=== PATIENT | female | born 1935 | race Caucasian/White ===

== ENCOUNTER 2019-01-04 14:26 | Observation (INO) | payer OTHER, MEDICARE ==
[~2019-01-04] VITALS: Ht 162.6 cm; Wt 117.4 kg
[2019-01-04 15:31] LABS: BASOPHILS % (AUTO) 0.6 % (0.0-5.0); EOSINOPHILS % (AUTO) 2.2 % (0.0-8.0); HEMATOCRIT 32.1 % (36-48); LYMPHOCYTES % (AUTO) 21.2 % (21.0-51.0); MEAN CORPUSCULAR HEMOGLOBIN 31.1 pg (27.0-33.0); MEAN CORPUSCULAR HGB CONC 33.2 g/dL (32.0-36.0); MEAN CORPUSCULAR VOLUME 93.8 fL (79-99); MONOCYTES % (AUTO) 8.2 % (3.0-13.0); NEUTROPHILS % (AUTO) 67.8 % (40.0-77.0); PLATELET COUNT (AUTO) 227 K/uL (130-400); RED BLOOD CELL COUNT(AUTO) 3.42 MIL/uL (4.00-5.50); RED CELL DISTRIBUTION WIDTH 13.8 % (11.0-15.5); WHITE BLOOD COUNT (AUTO) 6.2 K/uL (4.8-10.8)
[2019-01-04 15:41] LABS: CREATININE 1.4 mg/dL (0.5-1.5); INR 0.97 (0.85-1.15); PARTIAL THROMBOPLASTIN TIME 31.2 SEC (26.3-35.5); POTASSIUM 4.2 mmol/L (3.5-5.1); PROTHROMBIN TIME 10.2 SEC (9.6-11.6)
[2019-01-04 15:46] LABS: ALBUMIN 3.3 g/dL (3.5-5.0); BILIRUBIN,TOTAL 0.4 mg/dL (0.2-1.0); TOTAL PROTEIN, SERUM 6.7 g/dL (6.0-8.3)
[2019-01-04] MEDS ORDERED: TRAMADOL HCL 50 MG TABLET ONE (16:29)
[2019-01-04] MEDS ORDERED: SODIUM CHLORIDE 0.9% 1000ML 1,000 ML IV ONE (16:31)
[2019-01-04] MEDS ORDERED: KETOROLAC TROMETHAMINE 15MG/ML ONE (18:05)
[2019-01-04] MEDS ORDERED: IPRATROPIUM/ALBUTEROL SULFATE 3 ML SOLUTION IH ONE ×2 (21:09→22:17)
[2019-01-04] MEDS ORDERED: ENOXAPARIN SODIUM 30 MG/0.3 ML SQ ONE (23:47)
[2019-01-04] MEDS ORDERED: VANCOMYCIN 1GM+NS 250ML 250 ML IV ONE (23:48)
[2019-01-05 02:30] VITALS: BP 131/54
[2019-01-05] MEDS ORDERED: IPRATROPIUM/ALBUTEROL SULFATE 3 ML SOLUTION IH ONE ×2 (02:54→05:07)
[2019-01-05] MEDS ORDERED: GABA-529 PO (03:14)
[2019-01-05] MEDS ORDERED: TAMS-1 PO (03:14)
[2019-01-05] MEDS ORDERED: LUTE40CA PO (03:14)
[2019-01-05] MEDS ORDERED: HYDR-4060 PO (03:14)
[2019-01-05] MEDS ORDERED: LEVO25TA54 PO (03:14)
[2019-01-05] MEDS ORDERED: FOLI1TAB15 PO (03:14)
[2019-01-05] MEDS ORDERED: ACET650T9 PO (03:14)
[2019-01-05] MEDS ORDERED: PROP10DR5 OP (03:14)
[2019-01-05] MEDS ORDERED: CARV12.511 PO (03:14)
[2019-01-05] MEDS ORDERED: BRIM5DRO OU (03:14)
[2019-01-05] MEDS ORDERED: LEVO500T89 PO (03:14)
[2019-01-05] MEDS ORDERED: ACET250T28 PO (03:14)
[2019-01-05] MEDS ORDERED: INSU100I21 SQ ×2 (03:14)
[2019-01-05] MEDS ORDERED: FURO40TA5 PO (03:14)
[2019-01-05] MEDS ORDERED: INSU200I SQ ×2 (03:14)
[2019-01-05] MEDS ORDERED: PANT40TA25 PO (03:14)
[2019-01-05 04:00] VITALS: BP 128/51
[2019-01-05 05:38] LABS: MEAN CORPUSCULAR HGB CONC 32.3 g/dL (32.0-36.0); MEAN CORPUSCULAR VOLUME 95.9 fL (79-99); PLATELET COUNT (AUTO) 175 K/uL (130-400); RED BLOOD CELL COUNT(AUTO) 3.13 MIL/uL (4.00-5.50); RED CELL DISTRIBUTION WIDTH 14.4 % (11.0-15.5); WHITE BLOOD COUNT (AUTO) 5.1 K/uL (4.8-10.8)
[2019-01-05 05:44] LABS: CREATININE 1.3 mg/dL (0.5-1.5); POTASSIUM 4.2 mmol/L (3.5-5.1)
[2019-01-05] MEDS ORDERED: POTASSIUM CHLORIDE 20 MEQ ERTAB PO PRN (06:30)
[2019-01-05] MEDS ORDERED: ACETAMINOPHEN 325 MG TAB PO PRN (06:30)
[2019-01-05] MEDS ORDERED: POTASSIUM CHLORIDE 20MEQ/100ML 100 ML IV PRN (06:30)
[2019-01-05] MEDS ORDERED: DEXTROSE 50%-WATER 50 ML DISP.SYRIN IV PRN (06:30)
[2019-01-05] MEDS ORDERED: LIDOCAINE HCL-MPF 1% 2ML VIAL IJ PRN (06:30)
[2019-01-05] MEDS ORDERED: POTASSIUM CHLORIDE 10% ELIXIR 20 MEQ/15 ML UDCUP PO PRN (06:30)
[2019-01-05] MEDS ORDERED: COMPOUND IV REFRIGERATED 1 EACH IVSOLN MISC PRN (06:30)
[2019-01-05] MEDS ORDERED: SODIUM CHLORIDE 0.9% 10 ML VIAL IVP SCH (06:30)
[2019-01-05] MEDS ORDERED: VANCOMYCIN PROTOCOL PER PHARMACY IV SCH (06:30)
[2019-01-05] MEDS ORDERED: GLUCAGON 1MG KIT 1 MG ML IM PRN (06:30)
[2019-01-05] MEDS: INSULIN R PO SSI SQ SCH ×3 (07:30→16:41)
[2019-01-05 07:40] VITALS: BP 125/57
[2019-01-05] MEDS ORDERED: ENOXAPARIN SODIUM 30 MG/0.3 ML SQ SCH (09:00)
[2019-01-05] MEDS ORDERED: VANCOMYCIN 1.75 GM in SODIUM CHLORIDE 0.9% 250 ML IV SCH (09:00)
[2019-01-05] MEDS ORDERED: PREDNISONE 20 MG TABLET PO SCH (09:00)
[2019-01-05] MEDS ORDERED: IPRATROPIUM/ALBUTEROL SULFATE 3 ML SOLUTION IH SCH (10:00)
--- NOTE | 2019-01-05 10:30 | NUR ---
INITIAL MET W PATIENT ALONE, AAOX3, LIVES ALONE, HAS PROVIDERS, DAUGHTER PROVIDES TRANSPORT, AND PORVIDERS DO WOUND CARE AT HER DIRECTION, STILL INDEPENDENT WITH ADLS, SUCH BATHING, STATES WILL NEVER EVER GO TO A FACILITY FOR REHAB BUT DOES NEED HOME HEALTH TO CONTINUE, HAD [facility] 'FOR ABOUT A YEAR' BUT THEY STOPPED COMING. ADVISED HER SHE NEEDS TO GO BACK TO HER PMD TO GET HOME HEALTH RESTARTED. VERBALIZED UNDERSTANDING. DCP IS HOME, CM TO FOLLOW Addendum: 01/06/19 at 0914 by MAIKEL CARDONA RN CM Amended: Links added.
[2019-01-05 11:31] VITALS: BP 143/66
--- NOTE | 2019-01-05 12:29 | NUR ---
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 Addendum: 01/05/19 at 1230 by MIRIAM SIU LVN LVN W Amended: Links added.
[2019-01-05] MEDS ORDERED: HYDROCODONE/ACETAMINOPHEN 5/325 MG TAB PO PRN (16:15)
[2019-01-05] MEDS ORDERED: ACETAMINOPHEN EXTENDED RELEASE 650 MG TABLET PO SCH (16:15)
[2019-01-05] MEDS ORDERED: DOXY100C2 PO (16:23)
[2019-01-05 16:42] VITALS: BP 162/71
[2019-01-05] MEDS ORDERED: PEG OP SCH (18:19)
[2019-01-05] MEDS ORDERED: PROPYLENE GLYCOL OP SCH (18:19)
[2019-01-05] MEDS ORDERED: LUTEIN 40 MG PO SCH (21:00)
[2019-01-05] MEDS ORDERED: CARVEDILOL 12.5 MG TABLET PO SCH (21:00)
[2019-01-05] MEDS ORDERED: TIMOLOL OU SCH (21:00)
[2019-01-05] MEDS ORDERED: GABAPENTIN 100 MG CAPSULE PO SCH (21:00)
[2019-01-05] MEDS ORDERED: AcetaZOLAMIDE 250 MG TAB PO SCH (21:00)
[2019-01-05] MEDS ORDERED: BRIMONIDINE TARTRATE OU SCH (21:00)
[2019-01-06] MEDS ORDERED: PANTOPRAZOLE SODIUM 40 MG TABLET.DR PO SCH (07:30)
[2019-01-06] MEDS ORDERED: LEVOTHYROXINE 25 MCG TABLET PO SCH (07:30)
[2019-01-06] MEDS ORDERED: INSULIN DETEMIR 25 UNIT SQ SCH (09:00)
[2019-01-06] MEDS ORDERED: FUROSEMIDE 40 MG TABLET PO SCH (09:00)
[2019-01-06] MEDS ORDERED: FOLIC ACID 1 MG TABLET PO SCH (09:00)
[2019-01-06] MEDS ORDERED: TAMSULOSIN HCL 0.4 MG CAP.ER.24H PO SCH (09:00)
== END 2019-01-05 18:35 | disposition home or self-care (01) ==
LOC: EDH 14:26 → EDHIP 22:22 → 4BH 01-05 01:35
PROVIDERS: ADMIT Internal Medicine Critical Care Medicine; ATTEND Internal Medicine Critical Care Medicine
DX: J44.1 Chronic obstructive pulmonary disease with (acute) exacerbation (principal); E03.9 Hypothyroidism, unspecified; E11.9 Type 2 diabetes mellitus without complications; E66.9 Obesity, unspecified; G47.33 Obstructive sleep apnea (adult) (pediatric); H40.9 Unspecified glaucoma; J96.11 Chronic respiratory failure with hypoxia; L03.90 Cellulitis, unspecified; M19.90 Unspecified osteoarthritis, unspecified site; Z90.710 Acquired absence of both cervix and uterus; Z99.81 Dependence on supplemental oxygen; Z98.41 Cataract extraction status, right eye; Z98.42 Cataract extraction status, left eye; Z79.899 Other long term (current) drug therapy; Z79.01 Long term (current) use of anticoagulants
CPT/HCPCS: 36415 ×2; 71045 ×2; 73502; 80048; 80053; 82550; 82948 ×5; 83880; 84484; 85025; 85027; 85610; 85730; 93005; 93971 ×2; 94640 ×6; 94664; 96365; 96366; 96372; 99284; G0378 ×19; J1650 ×2; J1815 ×2; J1885; J3370 ×2; J7030 ×2